=== PATIENT | male | born 1975 | race American Indian/Alaskan Native ===

== ENCOUNTER 2019-06-09 13:57 | Emergency (ER) | payer OTHER ==
[2019-06-09 15:35] VITALS: BP 140/87
--- NOTE | 2019-06-09 15:37 | Event Note ---
ED Screening Note ED Screening Note: abscess to the neck began yesterday states felt hair bump then enlarged no PMhx no allergies to meds no hx of DM This initial assessment/diagnostic orders/clinical plan/treatment(s) is/are subject to change based on patients health status, clinical progression and re- assessment by fellow clinical providers in the ED. Further treatment and workup at subsequent clinical providers discretion. Patient/guardian urged not to elope from the ED as their condition may be serious if not clinically assessed and managed. Initial orders include: ACC eval
--- NOTE | 2019-06-09 16:34 | Emergency Department Report ---
Abscess Boil HPI - HPI Chief Complaint: Skin/Abscess/Foreign Body Stated Complaint: NECK Time Seen by Provider: 06/09/19 15:36 Duration: 1 Week Location: Neck Severity: Mild History: No Fever, No Pain, No Purulent Drainage, No Numbness, No Foreign Body, No Previous History, No Insect Bite HPI: There is a pleasant 44-year-old male presents the emergency room with chief complaint of a painful bump on the anterior neck. Patient reports he has pain and noticed the swelling increased this morning. Patient denies any injuries. Patient denies any previous lesions in the past. Patient denies past medical history, current medications or known allergies to medications. Home Medications: Previous Rx's Medication Instructions Recorded Last Taken Type Acetaminophen with Codeine 1 each PO Q6HR PRN #12 tablet 06/09/19 Unknown Rx [Acetaminophen-Codeine #2 TAB] Sulfamethoxazole/Trimethoprim 1 each PO BID 10 Days #20 tablet 06/09/19 Unknown Rx [Bactrim DS TAB] Allergies/Adverse Reactions: Allergies Allergy/AdvReac Type Severity Reaction Status Date / Time No Known Allergies Allergy Verified 06/09/19 14:03 ED Review of Systems ROS: Stated complaint: NECK Other details as noted in HPI Comment: All other systems reviewed and negative Constitutional: denies: chills, fever Eyes: denies: eye pain, eye discharge, vision change ENT: denies: ear pain, throat pain Respiratory: denies: cough, shortness of breath, wheezing Cardiovascular: denies: chest pain, palpitations Endocrine: no symptoms reported Gastrointestinal: denies: abdominal pain, nausea, diarrhea Genitourinary: denies: urgency, dysuria Musculoskeletal: denies: back pain, joint swelling, arthralgia Skin: as per HPI, lesions. denies: rash Neurological: denies: headache, weakness, paresthesias Psychiatric: denies: anxiety, depression Hematological/Lymphatic: denies: easy bleeding, easy bruising ED Past Medical Hx - Past Medical History Previous Medical History?: No - Surgical History Past Surgical History?: No - Social History Smoking Status: Never Smoker Substance Use Type: None - Medications Home Medications: Home Medications Medication Instructions Recorded Confirmed Last Taken Type Acetaminophen with Codeine 1 each PO Q6HR PRN #12 tablet 06/09/19 Unknown Rx [Acetaminophen-Codeine #2 TAB] Sulfamethoxazole/Trimethoprim 1 each PO BID 10 Days #20 tablet 06/09/19 Unknown Rx [Bactrim DS TAB] ED Abscess Boil Physical Exam - Exam General: Vital signs noted. No distress. Alert and acting appropriately. Size: >5 cm (7 cm abscess fluctuant the anterior neck) Exam: Yes Tenderness, Yes Fluctuance, Yes Normal Neurologic Exam, Yes Normal Circulation, No Surrounding Cellulites/Erythema, No Lymphangitis, No Crepitation, No Heart Murmur I & D Note - I & D Note I & D Note: 2% lidocaine without epinephrine was introduced into the skin with a 27-gauge needle after thorough cleaning with Betadine. I then used an 11 blade. A large amount of purulent drainage was expressed. Mild surrounding erythema noted. Wound was thoroughly irrigated. Patient tolerated without complication. ED Course Vital Signs 06/09/19 15:33 Temperature 98.6 F Pulse Rate 97 H Respiratory 16 Rate Blood Pressure 140/87 [Left] O2 Sat by Pulse 96 Oximetry Critical care attestation.: If time is entered above; I have spent that time in minutes in the direct care of this critically ill patient, excluding procedure time. ED Medical Decision Making - Medical Decision Making Patient presented with large abscess to anterior neck. Incision and drainage was performed without complication. Recommended warm compresses 5 minutes every hour and will start the patient on Bactrim and Tylenol 3 for pain. Recommended return emergently changing worsening symptoms. Also recommended that if this does not improve patient follow up with surgeon. Patient verbalizes understanding of the diagnosis, treatment plan and follow-up instructions - Differential Diagnosis abscess, abrasion, burn ED Disposition Clinical Impression: Abscess Disposition: - TO HOME OR SELFCARE Is pt being admited?: No Condition: Stable Instructions: Abscess (ED) Prescriptions: Acetaminophen with Codeine [Acetaminophen-Codeine #2 TAB] 1 each PO Q6HR PRN #12 tablet PRN Reason: Pain Sulfamethoxazole/Trimethoprim [Bactrim DS TAB] 1 each PO BID 10 Days #20 tablet Referrals: NIVIA ALLISON MD [Staff Physician] - 3-5 Days Time of Disposition: 17:36
[2019-06-09] MEDS ORDERED: LIDOCAINE (2%) 20 MG/1 ML VIAL 20 ML MDV INFILTRATI ONE (16:38)
== END 2019-06-09 17:52 | disposition home or self-care (01) ==
LOC: ED 13:57
DX: L02.11 Cutaneous abscess of neck (principal); Z79.899 Other long term (current) drug therapy
CPT/HCPCS: 99282